=== PATIENT | male | born 2000 | race Hispanic/Latino ===

== ENCOUNTER 2019-03-23 10:17 | Day surgery (SDC) | payer BC ==
[2019-03-23] MEDS ORDERED: Midazolam HCl 2 mg/2 ml Vial ONE (10:44)
[2019-03-23] MEDS ORDERED: Fentanyl 100 MCG/2 ML VIAL ONE (10:44)
[2019-03-23] MEDS ORDERED: cefOXitin 2 GM VIAL ONE (10:51)
[2019-03-23] MEDS ORDERED: Sodium Chloride 0.9% 100 ML ONE (10:51)
[2019-03-23] MEDS ORDERED: Meperidine HCl/PF 25 MG/ML VIAL ONE (12:13)
--- NOTE | 2019-03-23 13:56 | HP ---
CHIEF COMPLAINT: Right lower quadrant pain. HISTORY OF PRESENT ILLNESS: This is a 18-year-old male who presents with a history of pain in his right lower quadrant. Pain is described as sharp, 8/10, does not radiate. He was seen at an outside emergency room and diagnosed with appendicitis. CT scan shows appendicitis without perforation. PAST MEDICAL HISTORY: Includes ADHD. SURGICAL HISTORY: He denies. MEDICATIONS: Medicines taken daily, none. ALLERGIES: NO KNOWN DRUG ALLERGIES. SOCIAL HISTORY: No smoking, alcohol or other drugs. REVIEW OF SYSTEMS: 10-system review of systems is otherwise negative unless described above. PHYSICAL EXAMINATION: HEENT: Sclerae anicteric. Oropharynx clear. NECK: No lymphadenopathy. CHEST: Clear. HEART: Regular rate and rhythm. ABDOMEN: Soft, tender in the right lower quadrant with localized guarding. No rebound. No abdominal or inguinal hernias. EXTREMITIES: No ischemia or edema to extremities. DIAGNOSTIC STUDIES: CT scan shows acute appendicitis. ASSESSMENT: Acute appendicitis. PLAN: Laparoscopic appendectomy. Risks, benefits and alternatives discussed. He gave consent. We will do this today. Job ID: [id number]
--- NOTE | 2019-03-23 16:35 | OP ---
DATE OF PROCEDURE: 03/23/2019 PREOPERATIVE DIAGNOSIS: Acute appendicitis. POSTOPERATIVE DIAGNOSIS: Acute appendicitis. PROCEDURE PERFORMED: Laparoscopic appendectomy. ANESTHESIA: General. ESTIMATED BLOOD LOSS: Minimal. COMPLICATIONS: None. SPECIMEN: Appendix. FINDINGS: Appendicitis. DESCRIPTION OF PROCEDURE: The patient was taken to the operating room and laid supine on the operating room table. After general anesthetic was obtained, the abdomen was prepped and draped in a sterile fashion. A Martinez catheter had been placed. A curved incision was made below the umbilicus, cautery dissected down to and score the fascia. Abdominal cavity was entered bluntly using a Shaunna clamp. Holding stitch of PDS was placed on each side of the fascia. Jose trocar was placed. High-flow pneumoperitoneum was obtained. A suprapubic 5 mm port and left lower quadrant 5 mm port were placed under direct visualization. Cecum was rolled over to reveal acute appendicitis. Window was made at the base appendix and mesoappendix. Laparoscopic stapler was fired across the base of the appendix. A vascular reload was fired across the mesoappendix. Appendix was placed in an EndoCatch bag and brought out through the Parikh. All port sites were infiltrated using local anesthetic. A few bleeders on the staple line were clipped using laparoscopic clip. No injury to any intraabdominal structures. The abdomen was irrigated. All port sites were infiltrated using local anesthetic. All ports were removed under camera visualization. Pneumoperitoneum was let down. PDS was used to close the fascial defect below the umbilicus. All incisions were irrigated and closed using 4-0 Monocryl and Dermabond. The patient was sent to Recovery in stable condition. All instrument counts, needle counts, and lap counts were correct. Job ID: [id number]
== END 2019-03-23 14:00 | disposition home or self-care (01) ==
LOC: SDC 10:17
PROVIDERS: ATTEND Surgery
PROC: 0DTJ4ZZ Resection of Appendix, Percutaneous Endoscopic Approach (ICD-10-PCS; principal; 2019-03-23)
DX: K35.80 Unspecified acute appendicitis (principal)
CPT/HCPCS: 88304; J0131; J0694; J2175; J2250; J3010; J3490